=== PATIENT | male | born 1940 | race Caucasian/White ===

== ENCOUNTER 2016-11-24 08:39 | Day surgery (SDC) | payer OTHER ==
[~2016-11-24] VITALS: Ht 185.4 cm; Wt 112.0 kg
[2016-11-24] VITALS (16 sets, daily range): BP systolic 110–156; BP diastolic 52–99; PULSE 45–67; TEMP 36.9–37.2; O2SAT 94–100; Ht 185.4 cm; Wt 112.0 kg
[~2016-11-24 08:39] MED LIST: AMLO-110 PO; ASPI325T39 PO; ATEN-173 PO; ATOR10TA88 PO; FOLI800T PO; ISOS30TA3 PO; LISI5TAB3 PO; MULT-188 PO; MULTTAB5 PO; OMEG10007 PO; SYMIN160 INH; TAMS0.4C59 PO
[2016-11-24] MEDS ORDERED: MIDAZOLAM HCL 5 MG/ML 2ML VIAL IV ONE (08:40)
[2016-11-24] MEDS ORDERED: LEVALBUTEROL 1.25MG/3ML NEB INH ONE (08:40)
--- NOTE | 2016-11-24 09:30 | History & Physical Bridge Note ---
H&P Re-Evaluation Bridge Note: I have examined the patient, reviewed the History & Physical and in the interval since the performance of the History & Physical I have noted the following changes of clinical significance: No changes noted
--- NOTE | 2016-11-24 09:31 | Procedure Note ---
Pre-Mod Sedation Assessment General Date of Moderate Sedation: Nov 24, 2016. Pre-Sedation Airway Assessment Mallampati Classification: Class I ASA Classification: Class II Procedure Planning Contraindications-for Mod Sed: None Yes Notes The planned sedation has been discussed with the patient and consent obtained. I have identified the patient, determined the appropriateness of sedation and have assessed the patient immediately prior to the procedure. All medicine(s) and interventions are by my order.
[2016-11-24] MEDS ORDERED: MULT-663 ×2 (09:57)
[2016-11-24] MEDS ORDERED: NURSING VERBAL MED ORDER ONE (11:45)
[2016-11-24] MEDS ORDERED: MIDAZOLAM HCL 5 MG/ML 1 ML VIAL IV ONE (11:45)
--- NOTE | 2016-11-24 12:39 | Discharge Instructions ---
Discharge Instructions Date of Service Nov 24, 2016. Admission Reason for Admission: Rt Middle Lobe Pnx, Pulmonary Nodule Discharge Discharge Diagnosis / Problem: Rt middle lobe pneumonia. Pulmonary nodule. Discharge Goals Goal(s): Diagnostic testing Activity Recommendations Activity Limitations: resume your previous activity . Instructions / Follow-Up Instructions / Follow-Up ACTIVITY RECOMMENDATIONS: * Rest today, resume normal activity tomorrow. * Do not drive today. SPECIAL CARE INSTRUCTIONS: * Call your physician if you experience any chest or shoulder pain, fever, coughing, spitting up blood (more than 2 teaspoons) or excessive shortness of breath. * Remove dressing from IV site (where needle was placed into the vein) after 2 hours. Apply a warm, moist compress to site if irritation occurs. Call physician if site becomes red or painful to touch. * You may eat 4 hours after the completion of your procedure * Resume all usual medications as previously directed FOLLOW UP VISIT: * Keep any scheduled doctor appointments. Current Hospital Diet Patient's current hospital diet: Discharge Diet Recommended Diet: Regular Diet Pending Studies Studies pending at discharge: yes List of pending studies: Broncoscopy washings. Medical Emergencies . Who to Call and When: Medical Emergencies: If at any time you feel your situation is an emergency, please call 911 immediately. . Non-Emergent Contact Non-Emergency issues call your: Primary Care Provider . . "Provider Documentation" section prepared by Morales Puente PA-C. . VTE Core Measure Inpt VTE Proph given/why not?: Treatment not indicated (Same day procedure. )
--- NOTE | 2016-11-24 12:55 | DIAGNOSTIC IMAGING REPORT ---
INSPIRATORY/EXPIRATORY CHEST RADIOGRAPHS CLINICAL HISTORY: Post bronchoscopy and biopsy. FINDINGS: AP upright chest radiographs are performed in inspiration and expiration. Comparison is made to study dated 10/28/2016. Correlation is made with chest CT dated 10/17/2016. The examination is degraded by patient rotation and apical lordotic positioning. The heart is enlarged and there is atherosclerotic calcification of the thoracic aorta. The pulmonary vasculature is noncongested. There is volume loss in the right lung with a large right upper lobe opacity. The left lung is grossly clear. No large pleural effusion or pneumothorax is seen. The skeletal structures are osteopenic. The bony thorax is grossly intact. Degenerative change is noted in the thoracic spine. IMPRESSION: 1. No pneumothorax is identified post procedure. 2. Volume loss in the right lung with a right upper lobe density is similar to previous. Electronically signed by: Rick Wilder M.D. 11/24/2016 12:54 PM Dictated Date/Time: 11/24/2016 12:51 PM
--- NOTE | 2016-11-24 14:30 | OPERATIVE REPORT ---
DATE OF OPERATION: 11/24/2016 TIME: 10:30. PROCEDURE: Fiberoptic bronchoscopy with and without bronchoalveolar lavage. REASON FOR BRONCHOSCOPY: Persistent right upper lobe opacity in a chronic smoker. ANESTHESIA PREOPERATIVELY: None. ANESTHESIA DURING PROCEDURE: 6 mg IV Versed, 20 mL 2% Xylocaine spray above and below the cords, 4% viscous Xylocaine intranasally. PROCEDURE IN DETAIL: Fiberoptic bronchoscope was inserted into the left naris with minimal difficulty and passed to the level of the true vocal cords. The mucosa at the takeoff just superior to the vocal cord and laryngeal apparatus. Somewhat hypertrophied anteriorly but no discernible lesion was visible. The cords were anesthetized with 2% Xylocaine spray and the scope was then introduced into the trachea and right and left tracheobronchial tree. The bill was sharp. Left mainstem bronchus was found to be free of endobronchial lesions. Left upper lobe, the apical, posterior, anterior segments, lingular subdivision, left lower lobe were free of endobronchial lesions down to subsegmental bronchi. Right tracheobronchial tree was explored. The bill was sharp. The right mainstem bronchus was free of endobronchial lesions. Right middle lobe, the medial and lateral segments and all basilar segments of right lower lobe were found to be free of endobronchial lesions. Scope was then withdrawn to the right upper lobe. Mucosa appeared to be somewhat irregular with the posterior segment fish mouthed and partially obstructed. The mucosa overlying the apical segment and the anterior segments also looked hypertrophied and irregular. This area was copiously lavaged with Normosol and the aspirate sent for appropriate studies. Brushings were taken from all 3 segments and sent for cytologic preparation. Three brushings were taken. Minimal amount of bleeding was encountered which abated spontaneously. Iced saline lavage was then instilled into the right upper lobe bronchus and several endobronchial biopsies were taken from the posterior and the apical segments and the takeoff of the right upper lobe orifice. A moderate amount of bleeding was encountered which abated following instillation of iced saline lavage. The procedure was terminated. The patient was given a nebulizer treatment with Xopenex 1.25 mg and inspiratory and expiratory films were taken of the chest and the patient was then sent to the medical treatment unit hemodynamically stable with no signs of respiratory compromise. We will await microbiological, cytological and histopathologic diagnoses. I attest to the content of the Intraoperative Record and any orders documented therein. Any exception s are noted below.
[2016-11-27 13:41] LABS: HERPES SIMPLEX CULT SOURCE OTHER-R UPPER LOBE W; HERPES SIMPLEX VIRUS CULT NOT ISOLATED (NOT ISOLATED)
== END 2016-11-24 14:16 | disposition home or self-care (01) ==
LOC: C.ACU 08:39
PROVIDERS: ATTEND Internal Medicine Pulmonary Disease
DX: J18.1 Lobar pneumonia, unspecified organism (principal); R91.1 Solitary pulmonary nodule; J45.909 Unspecified asthma, uncomplicated; I25.10 Atherosclerotic heart disease of native coronary artery without angina pectoris; I10 Essential (primary) hypertension; E78.5 Hyperlipidemia, unspecified; R97.20 Elevated prostate specific antigen [PSA]; Z87.891 Personal history of nicotine dependence; Z79.82 Long term (current) use of aspirin; Z79.899 Other long term (current) drug therapy

== ENCOUNTER → 2017-01-05 | Outpatient (CLI) | payer OTHER ==
[~2017-01-05] MED LIST changes: +MULT-663
--- NOTE | 2017-01-05 12:37 | DIAGNOSTIC IMAGING REPORT ---
PET/CT SKULL-THIGH CLINICAL HISTORY: Solitary pulmonary nodule COMPARISON STUDY: Outside chest CT dated 10/17/2016 FINDINGS: The patient was injected with 12.7 mCi of F-18 labeled FDG. Following the standard induction phase, PET/CT scanning is performed from the skull base the upper thigh region. Activity within the neck is felt to be physiologic. Within the chest, there is persistent but improving right upper lobe atelectasis/consolidation. There is persistent cut off of the right mainstem bronchus. There are atelectatic/consolidated right upper lobe is moderately FDG avid with SUV maximum of 5.2. There is a moderately FDG avid lower right paratracheal lymph node with SUV maximum of 4.5. This contains areas of calcification. The node is minimally enlarged measuring 11 mm. There is a mildly enlarged 13 mm subcarinal lymph node which is mildly FDG avid with SUV maximum of 3.8. Within the abdomen and pelvis, there is no pathologic hepatic or splenic activity. There is physiologic urinary tract and bowel activity. There is no pathologic nimesh activity. There is no pathologic adrenal gland activity. The spleen is mildly enlarged measuring 12 cm. The prostate is enlarged measuring 6.5 cm. There is extensive colonic diverticulosis. IMPRESSION: 1. Persistent but improving right upper lobe atelectasis/consolidation, with persistent "cut off" of the right upper lobe bronchus. The atelectatic/consolidated lung is moderately FDG avid with SUV maximum of 5.2 2. Multiple mediastinal lymph nodes, many of which are partially calcified. Several are mildly enlarged including a 11 mm lower right paratracheal lymph node which is mildly FDG avid with SUV maximum of 4.5, as well as a 13 mm subcarinal lymph node with an SUV maximum of 3.8 Electronically signed by: Reymundo Weeks M.D. 01/05/2017 12:36 PM Dictated Date/Time: 01/05/2017 12:20 PM
== END | disposition home or self-care (01) ==
LOC: C.PET 09:10
PROVIDERS: ATTEND Physician Assistant
DX: R91.1 Solitary pulmonary nodule (principal)

== ENCOUNTER → 2017-04-20 | Day surgery (SDC) | payer OTHER ==
[2017-04-16 16:01] VITALS: BMI 32.0
[~2017-04-20] VITALS: Ht 188 cm; Wt 113.6 kg
[~2017-04-20] MED LIST changes: -AMLO-110 PO; +AMOX1TAB42 PO; +ATOR-54 PO; +ATOR10TA82 PO; -ATOR10TA88 PO; +ATRINS NEB; +ATROPINE SULFATE 0.1 MG/ML 5ML SYR IV PRN; +CHOL1000 PO; +DEXAMETHASONE SOD INJ 4 MG/ML VIAL ONE; +EpHEDrine SULFATE 50MG/5ML SYR ONE; +EpHEDrine SULFATE INJ 50 MG/ML AMP IV PRN; +EpHEDrine SULFATE INJ 50 MG/ML AMP ONE; +FENTANYL CITRATE INJ 50 MCG/1 ML 2 ML VIAL IV PRN; +FENTANYL CITRATE INJ 50 MCG/1 ML 2 ML VIAL ONE; +FLUMAZENIL 0.1 MG/1 ML 10 ML VIAL IV PRN; +LABETALOL HCL IV 5 MG/ML 20ML IV PRN; +LARYING-O-JET KIT (LTA) ONE; +LIDOCAINE HCL 2% 2 ML VIAL (20MG/ML) ONE; +LISI-729 PO; -LISI5TAB3 PO; +METH500T3 PO; +MIDAZOLAM HCL 1 MG/ML 2ML VIAL ONE; -MULT-663; +NALOXONE HCL 0.4 MG/1 ML VIAL/CARP IV PRN; +ONDANSETRON INJ 2 MG/ML 2 ML VIAL IV PRN; +ONDANSETRON INJ 2 MG/ML 2 ML VIAL ONE; +PHENYLEPHRINE HCL INJ 10 MG/ML VIAL ONE; +PROMETHAZINE HCL INJ 12.5 MG in SODIUM CHLORIDE 0.9% 50ML 50 ML IV PRN; +PROPOFOL IV EMULSION 10 MG/ML 20 ML VIAL IV ONE; +ROCURONIUM BROMIDE 10 MG/ML 5 ML VIAL IV ONE; +SODIUM CHLORIDE 0.9% 1000ML 1,000 ML IV SCH; +TAMS0.4C38 PO; -TAMS0.4C59 PO; +TIOT1SPR INH; +VNTHFA/IN INH
[2017-04-20 08:51] VITALS: BP 143/71; PULSE 75; TEMP 36.6; O2SAT 91; Ht 188 cm; Wt 113.6 kg
--- NOTE | 2017-04-20 10:23 | History and Physical ---
History & Physical Date of Service Apr 20, 2017. History & Physical Patient is here today for a follow-up. Since he was last here he did have a PET scan done. PET scan was reviewed with him as well as he of recent CT scan. Patient has had a known right upper lobe nodular area for several years. However earlier this year there was a change so we ended up doing bronchoscopic evaluation. The bronchoscopy did review all the regular appears the tissue, but the brushings and washings were unremarkable. Because of this a PET scan was done. CT scan is showing some FDG avidity with a maximum SUV of 5.2. It was recommended the patient have a subsequent CT scan following this. CT scan was done recently and showed a decrease in size of this atelectatic/nodular area compared to previous studies. There is a bronchial but does have a cut off with question of obstruction. And this was reviewed with the patient as well. One discussed with the patient patient reports that he is not having any breathing difficulties. No cough. No wheeze. No chest congestion or tightness. He overall is feeling well. He is not having any increased shortness of breath at rest or with exertion. He is not having any difficulty with cough or congestion. No significant mucus production. He has not had any anginal symptoms. No chest pain. No palpitations. No fever chills. No night sweats. His weight is been stable. There has been no weight change. He has not had any difficulty with GI symptoms. No nausea or vomiting. No indigestion or heartburn. No difficulty with his bowels. No difficulty voiding. No swelling in his extremities. He is taking his medications as directed. He has not had any side effect to his Medicaid. Active Problems 1. Arteriosclerotic cardiovascular disease 2. Asthma 3. Asthmatic bronchitis 4. Chemotherapeutics 5. Colon cancer 6. Cough 7. Elevated prostate specific antigen (PSA) 8. Hyperlipidemia 9. Hypertension 10. Nephrolithiasis 11. Oral thrush 12. Pulmonary atelectasis 13. Right middle lobe pneumonia 14. Shortness of breath 15. Solitary pulmonary nodule 16. History of asbestos exposure Surgical History 1. History of Card Cath Post-Proc Data: ___ Lesions Successfully Dilated 2. History of Cath Stent Placement 3. Chemotherapeutics 4. History of Cholecystectomy Laparoscopic 5. History of Colon Surgery 6. History of Hernia Repair 7. History of Pulmonary Function Tests Family History 1. Family history of malignant neoplasm of prostate (Z80.42) 2. Family history of Acute Myocardial Infarction 3. Family history of Heart Disease 4. Family history of Hypertension 5. Family history of Prostate Cancer Social History Being A Social Drinker Former smoker (Z87.891) Marital History - Currently Retired From Work Current Meds 1. Symbicort 160-4.5 MCG/ACT Inhalation Aerosol; INHALE 1 PUFF TWICE DAILY. RINSE 2. Ipratropium-Albuterol 0.5-2.5 (3) MG/3ML Inhalation Solution; inhale contents of 1 vial 3. Spiriva Respimat 2.5 MCG/ACT Inhalation Aerosol Solution; INHALE 2 PUFFS ONCE 4. Ventolin HFA 108 (90 Base) MCG/ACT Inhalation Aerosol Solution; INHALE 2 PUFFS 5. Aspirin 325 MG Oral Tablet; TAKE 1 TABLET DAILY; 6. Atenolol 25 MG Oral Tablet; TAKE 1 TABLET DAILY; 7. Atorvastatin Calcium 20 MG Oral Tablet; TAKE 1 TABLET DAILY DIRECTED; 8. Centrum Silver Oral Tablet; TAKE 1 TABLET DAILY; 9. Citrucel TABS; Take 1 tablet daily; 10. Fish Oil 1000 MG Oral Capsule; TAKE 1 CAPSULE DAILY; 11. Flomax 0.4 MG Oral Capsule; TAKE 1 CAPSULE Daily; 12. Folic Acid 800 MCG Oral Tablet; Take 1 tab Sun, Tues, Thur, Sat; 13. Imdur 30 MG TB24; TAKE 1 /2 TABLET DAILY; 14. Lisinopril 5 MG Oral Tablet; TAKE 1 TABLET DAILY 15. Ocuvite TABS Allergies 1. No Known Drug Allergies Vitals Blood Pressure: 130 / 82, LUE, Sitting Height: 6 ft 2 in Weight: 257 lb 2 oz BMI Calculated: 33.01 BSA Calculated: 2.42 O2 Saturation: 98, RA Temperature: 98 F Heart Rate: 57 Respiration: 20 Physical Exam Constitutional General appearance: No acute distress, well appearing and well nourished. Eyes Conjunctiva and lids: No swelling, erythema, or discharge. Pupils and irises: Equal, round and reactive to light. Ears, Nose, Mouth, and Throat External inspection of ears and nose: Normal. Oropharynx: Normal with no erythema, edema, exudate or lesions. Pulmonary Respiratory effort: No increased work of breathing or signs of respiratory distress. Auscultation of lungs: Abnormal. ~Patient has diminished breath sounds bilaterally. He has some coarse wheezes in the left base. Cardiovascular Palpation of heart: Normal PMI, no thrills. Auscultation of heart: Normal rate and rhythm, normal S1 and S2, without murmurs. Examination of extremities for edema and/or varicosities: Normal. Abdomen Abdomen: Non-tender, no masses. Liver and spleen: No hepatomegaly or splenomegaly. Lymphatic Palpation of lymph nodes in neck: No lymphadenopathy. Neurologic Cranial nerves: Cranial nerves 2-12 intact. Reflexes: 2+ and symmetric. Sensation: No sensory loss. Psychiatric Orientation to person, place and time: Normal. Mood and affect: Normal.
--- NOTE | 2017-04-20 12:12 | Bronchoscopy Procedure Note ---
Bronchoscopy Procedure Note Procedure: Flexible-Bronchoscopy, EBUS, FNA, Tbbx, BAL Consent: Obtained through the patient placed into the chart Pre-Procedural Dx: Right upper lobe mass with mediastinal adenopathy Post-Procedural Dx: Right upper lobe mass with mediastinal adenopathy Analgesia: GETA Sedation: GETA Procedure: The Olympus video bronchoscope and EBUS scope were used for this procedure Initially the flexible bronchoscope was used for evaluation of the airways. The ET tube was notably 6 cm above the level of the bill. Trachea: Visualized portion of the trachea was anatomically within normal limits Bill: Anatomically within normal limits Right bronchial tree: Right mainstem bronchus: Anatomically within normal limits Right upper lobe: RB3 bronchial malacia with complete collapse/adherence of the airway Bronchus intermedius: Anatomically within normal limits Right middle lobe: Anatomically within normal limits Right lower lobe: Anatomically within normal limits Findings: No significant findings noted Left bronchial tree: Left mainstem bronchus: Anatomically within normal limits Left upper lobe: Anatomically within normal limits Lingula: Anatomically within normal limits Left lower lobe: Anatomically within normal limits Findings: No significant findings noted EBUS/JET: FNA [place] Stations: 7: # of passes 4 10R: # of passes 4 4R: # of passes 6 Procedure: I did use the intrabronchial forcep/transbronchial forcep biopsies to slowly open a small hole into the anterior subsegment of the right upper lobe allowing me to pass the forceps into that subsegment and take small transbronchial biopsies Tbbx: Right upper lobe BAL: Right upper lobe EBL: 5 cc Complications: None Follow-up: PACU
--- NOTE | 2017-04-20 12:47 | Anesthesiology Progress Note ---
Anesthesia Post Op Note Date & Time Apr 20, 2017 at 12:47 Vital Signs Pain Intensity: 0 Vital Signs Past 12 Hours Date Time Temp Pulse Resp B/P (MAP) Pulse Ox O2 Delivery O2 Flow Rate FiO2 04/20/17 12:35 79 17 140/74 100 Oxymask 10 04/20/17 12:25 96 15 133/75 100 Oxymask 10 04/20/17 12:17 36.1 79 16 139/74 97 Oxymask 04/20/17 08:51 36.6 75 20 143/71 (95) 91 Room Air Notes Mental Status: alert / awake / arousable, participated in evaluation Pt Amnestic to Procedure: Yes Nausea / Vomiting: adequately controlled Pain: adequately controlled Airway Patency, RR, SpO2: stable & adequate BP & HR: stable & adequate Hydration State: stable & adequate Anesthetic Complications: no major complications apparent
--- NOTE | 2017-04-20 13:11 | DIAGNOSTIC IMAGING REPORT ---
CHEST ONE VIEW PORTABLE CLINICAL HISTORY: Post endobronchial biopsy COMPARISON STUDY: 11/24/2016 FINDINGS: Cardiac and mediastinal contours remain stable. There is elevation of the right hemidiaphragm. There is a chronic right perihilar and upper lobe opacity measuring 6 cm. There is no pneumothorax status post bronchoscopy.[ IMPRESSION: No evidence of pneumothorax status post bronchoscopy. Electronically signed by: Reymundo Weeks M.D. 04/20/2017 1:09 PM Dictated Date/Time: 04/20/2017 1:08 PM
[2017-04-20 13:15] VITALS: BP 130/83; PULSE 77; TEMP 36.6; O2SAT 92
[2017-04-20 13:45] VITALS: BP 121/70; PULSE 66; O2SAT 99
--- NOTE | 2017-04-20 14:05 | Discharge Instructions ---
Discharge Instructions Date of Service Apr 20, 2017. Admission Reason for Admission: Pulmonary Nodule Discharge Discharge Diagnosis / Problem: right upper lobe mass with mediastinal lymphadenopathy Discharge Goals Goal(s): Diagnostic testing Activity Recommendations Activity Limitations: resume your previous activity . Instructions / Follow-Up Instructions / Follow-Up Follow-up in the [facility] pulmonary division Current Hospital Diet Patient's current hospital diet: Regular Diet Discharge Diet Recommended Diet: Regular Diet Procedures Procedures Performed: Flexible Bronchosbopy and Endobronchial Ultrasound Guided Transbronchial Biopsy Pending Studies Studies pending at discharge: no Medical Emergencies . Who to Call and When: Medical Emergencies: If at any time you feel your situation is an emergency, please call 911 immediately. . Non-Emergent Contact Non-Emergency issues call your: Fisher Clam . . "Provider Documentation" section prepared by Estuardo Mckeon. . VTE Core Measure Inpt VTE Proph given/why not?: Treatment not indicated
[2017-04-20 14:15] VITALS: BP 123/66; PULSE 65; TEMP 36.7; O2SAT 93
== END | disposition home or self-care (01) ==
LOC: C.ACU 07:58
PROVIDERS: ATTEND Internal Medicine Critical Care Medicine
DX: R91.8 Other nonspecific abnormal finding of lung field (principal); R59.0 Localized enlarged lymph nodes; J45.909 Unspecified asthma, uncomplicated; J44.9 Chronic obstructive pulmonary disease, unspecified; I12.9 Hypertensive chronic kidney disease with stage 1 through stage 4 chronic kidney disease, or unspecified chronic kidney disease; I25.10 Atherosclerotic heart disease of native coronary artery without angina pectoris; N18.9 Chronic kidney disease, unspecified; E78.5 Hyperlipidemia, unspecified; Z98.890 Other specified postprocedural states; Z90.49 Acquired absence of other specified parts of digestive tract; Z90.89 Acquired absence of other organs; E66.9 Obesity, unspecified; Z68.32 Body mass index [BMI] 32.0-32.9, adult; Z87.891 Personal history of nicotine dependence; Z79.899 Other long term (current) drug therapy; Z79.82 Long term (current) use of aspirin; Z80.42 Family history of malignant neoplasm of prostate; Z82.49 Family history of ischemic heart disease and other diseases of the circulatory system

== ENCOUNTER → 2017-05-20 | Day surgery (SDC) | payer OTHER ==
[2017-05-07 08:13] VITALS: Ht 188 cm; Wt 113.6 kg
[~2017-05-20] VITALS: Ht 188 cm; Wt 113.6 kg
[~2017-05-20] MED LIST changes: +500ML BSS 0.3ML EPI 1:1000PF IRRIG ONE; +ACETAMINOPHEN 325 MG TAB PO PRN; +AMVISC PLUS 0.8ML SYRINGE INT OCU ONE; -ATOR10TA82 PO; +AcetaZOLAMIDE 250 MG TAB PO SCH; +BETAXOLOL HCL 0.25% OP SUSP PER DROP CHARGE OPL SCH; +BRIMONIDINE TART 0.2% OP SOLN PER DROP CHARGE ONE; +BSS FLUSH ONE; -DEXAMETHASONE SOD INJ 4 MG/ML VIAL ONE; +ENDOCOAT 0.85ML SYRINGE INT OCU ONE; -EpHEDrine SULFATE 50MG/5ML SYR ONE; -EpHEDrine SULFATE INJ 50 MG/ML AMP ONE; +EpINEphrine INJ 1MG/ML AMP 1 MG/ML AMP ONE; -FENTANYL CITRATE INJ 50 MCG/1 ML 2 ML VIAL IV PRN; -FENTANYL CITRATE INJ 50 MCG/1 ML 2 ML VIAL ONE; -FLUMAZENIL 0.1 MG/1 ML 10 ML VIAL IV PRN; -LABETALOL HCL IV 5 MG/ML 20ML IV PRN; +LACTATED RINGER'S 1000ML 500 ML IV SCH; -LARYING-O-JET KIT (LTA) ONE; +LIDOCAINE 4% OP SOLN DROP CHARGE ONE; +LIDOCAINE 4% OP SOLN DROP CHARGE OPL SCH; +LIDOCAINE HCL 1% MPF 2 ML VIAL ONE; -LIDOCAINE HCL 2% 2 ML VIAL (20MG/ML) ONE; -LISI-729 PO; +MIX: 4ML BSS 1ML EPI 1:1000 PF INSTIL ONE; +MOXIFLOXACIN OPH SOLN PER DROP CHARGE ONE; -NALOXONE HCL 0.4 MG/1 ML VIAL/CARP IV PRN; +OCUCOAT 1 ML SOLN IO ONE; -ONDANSETRON INJ 2 MG/ML 2 ML VIAL IV PRN; -ONDANSETRON INJ 2 MG/ML 2 ML VIAL ONE; -PHENYLEPHRINE HCL INJ 10 MG/ML VIAL ONE; +POVIDONE-IODINE OP SOLN 30 ML BTL ONE; -PROMETHAZINE HCL INJ 12.5 MG in SODIUM CHLORIDE 0.9% 50ML 50 ML IV PRN; +PROPARACAINE 0.5% OP SOLN PER DROP CHARGE OPL SCH; -PROPOFOL IV EMULSION 10 MG/ML 20 ML VIAL IV ONE; -ROCURONIUM BROMIDE 10 MG/ML 5 ML VIAL IV ONE; -SODIUM CHLORIDE 0.9% 1000ML 1,000 ML IV SCH; +TOBRAMYCIN/DEXAMETHASONE OPH OINT PER APPLN CHARGE ONE
[2017-05-20] MEDS: PHENYLEPHRINE HCL 2.5% OP SOLN PER DROP CHARGE OPL SCH ×2 (11:41→11:46)
[2017-05-20] MEDS: TROPICAMIDE 1% OP SOLN PER DROP CHARGE OPL SCH ×2 (11:42→11:47)
[2017-05-20] MEDS: CYCLOPENTOLATE HCL 1% OP SOLN PER DROP CHARGE OPL SCH ×2 (11:43→11:48)
[2017-05-20] MEDS: MOXIFLOXACIN OPH SOLN PER DROP CHARGE OPL SCH ×2 (11:44→11:54)
--- NOTE | 2017-05-20 12:40 | Discharge Instructions-SurgCtr ---
Discharge Instructions Date of Service May 20, 2017. Visit Reason for Visit: Left Cataract Discharge Discharge Diagnosis / Problem: lens implant left eye Discharge Goals Goal(s): Improve function Activity Recommendations Activity Limitations: resume your previous activity Lifting Limitations: no more than 10 pounds Exercise/Sports Limitations: gradually increase as tolerated May Resume Sexual Activity: when tolerated Shower/Bathe: tomorrow Driving or Machine Use: resume 1 day after discharge Anesthesia . Post Anesthesia Instructions: If you have had General Anesthesia or IV Sedation: * Do not drive today. * Resume driving when surgeon permits. * Do not make important decisions or sign legal documents today. * Call surgeon for: 1. Temperature elevations greater than 101 degrees F. 2. Uncontrollable pain. 3. Excessive bleeding. 4. Persistent nausea and vomiting. 5. Medication intolerance (nausea, vomiting or rash). * For nausea and vomiting use only clear liquids such as: tea, soda, bouillon until nausea subsides, then gradually increase diet as tolerated. * If you have any concerns or questions, call your surgeon's office. If physician is unavailable and it is an emergency, call 911 or go to the nearest emergency room. . Instructions / Follow-Up Instructions / Follow-Up ACTIVITY RECOMMENDATIONS: * Light activities. * Mild irritation and blurred vision are common for the first few days. * You may walk outside, read, watch television. * Redness around the white part of the eye is common. MEDICATIONS: Resume previous medications unless instructed otherwise by your surgeon. * Take white Diamox (Acetazolamide) tablet at 3 pm today. Start all eye drops at 3 pm today: * Eye drops (today and tomorrow): Prednisone - one drop in operative eye every 3 hours while awake Ofloxacin - one drop in operative eye every 3 hours while awake SPECIAL CARE INSTRUCTIONS: * Tape plastic shield over eye to sleep at night. Call your doctor at with any concerns or problems. FOLLOW UP VISIT: Follow-up with Dr Larry at [place] office as scheduled. Diet Recommendations Home Diet: no limitations Procedures Procedures Performed: cataract extraction with lens implant Pending Studies Studies pending at discharge: no Medical Emergencies . Who to Call and When: Medical Emergencies: If at any time you feel your situation is an emergency, please call 911 immediately. . Non-Emergent Contact Non-Emergency issues call your: [employer] Developer Call Non-Emergent contact if: your pain is not controlled [phone] . . "Provider Documentation" section prepared by Christopher Larry. .
--- NOTE | 2017-05-20 12:41 | [facility] Operative Report ---
Operative Report Date of Service May 20, 2017. Operative Report 1. PREOPERATIVE DIAGNOSIS: Senile nuclear cataract, left eye. 2. POSTOPERATIVE DIAGNOSIS: Senile nuclear cataract, left eye. 3. PROCEDURE: Phacoemulsification of left cataract with posterior chamber lens implant, type [employer], model MX60, power +18.0 diopters. ANESTHESIA: Local standby. SURGEON: Dr. Larry. COMPLICATIONS: None. OPERATING TIME: 10 minutes. 4. OPERATION AND FINDINGS: DESCRIPTION OF PROCEDURE: The left pupil was dilated. The anesthetic was administered using a topical technique. The left eye was prepped and draped. A speculum was placed. A clear corneal incision was formed. The chamber was filled with Amvisc Plus and Endocoat. Epinephrine solution was used. A paracentesis was placed. A capsulorrhexis was performed. The nucleus was hydrodissected. The lens was removed with phacoemulsification. Time was 3.04 seconds. The aspiration unit was used to remove the cortex. The capsule was filled with Amvisc Plus. The lens implant was folded and placed into the capsule. The incision was hydrated. The Amvisc was aspirated. The wound was secure. The chamber was deep. The pupil was round. Brimonidine, TobraDex ointment and Vigamox solution were placed. The speculum was removed. The patient was returned to the Recovery Room in stable condition. I attest to the content of the Intraoperative Record and any orders documented therein. Any exceptions are noted below. The scribe's documentation has been prepared in my presence, under my direction and personally reviewed by me in its entirety. I confirm that the note above accurately reflects all work, treatment, procedures, and medical decision making performed by me. I personally scribed for Christopher Larry M.D. ([email or web address]) on 05/20/17 at 12:41. Electronically submitted by Margret Bustos ([email or web address]).
[2017-05-20 12:44] VITALS: TEMP 36.9
--- NOTE | 2017-05-20 12:46 | Anesthesia Progress Nt - [facility] ---
Anesthesia Post Op Note Date & Time May 20, 2017 at 12:46 Vital Signs Pain Intensity: 0 Vital Signs Past 12 Hours Date Time Temp Pulse Resp B/P (MAP) Pulse Ox O2 Delivery O2 Flow Rate FiO2 05/20/17 11:31 36.7 57 18 127/60 (82) 99 Room Air Notes Mental Status: alert / awake / arousable, participated in evaluation Pt Amnestic to Procedure: Yes Nausea / Vomiting: adequately controlled Pain: adequately controlled Airway Patency, RR, SpO2: stable & adequate BP & HR: stable & adequate Hydration State: stable & adequate Anesthetic Complications: no major complications apparent
[2017-05-20 13:03] VITALS: BP 145/84; PULSE 49; O2SAT 100
== END | disposition home or self-care (01) ==
LOC: X.SURG 10:58
PROVIDERS: ATTEND Specialist
DX: H25.12 Age-related nuclear cataract, left eye (principal); I25.10 Atherosclerotic heart disease of native coronary artery without angina pectoris; N18.9 Chronic kidney disease, unspecified; E66.9 Obesity, unspecified; Z68.32 Body mass index [BMI] 32.0-32.9, adult; Z98.890 Other specified postprocedural states; Z90.49 Acquired absence of other specified parts of digestive tract; Z85.038 Personal history of other malignant neoplasm of large intestine

== ENCOUNTER → 2017-06-10 | Day surgery (SDC) | payer OTHER ==
[2017-06-04 12:28] VITALS: Ht 188 cm; Wt 113.6 kg
[~2017-06-10] VITALS: Ht 188 cm; Wt 113.6 kg
[~2017-06-10] MED LIST changes: -AMOX1TAB42 PO; -BETAXOLOL HCL 0.25% OP SUSP PER DROP CHARGE OPL SCH; +BETAXOLOL HCL 0.25% OP SUSP PER DROP CHARGE OPR SCH; -LIDOCAINE 4% OP SOLN DROP CHARGE OPL SCH; +LIDOCAINE 4% OP SOLN DROP CHARGE OPR SCH; +MULT-1093 PO; -MULT-188 PO; +MULT60CA PO; -MULTTAB5 PO; -PROPARACAINE 0.5% OP SOLN PER DROP CHARGE OPL SCH; +PROPARACAINE 0.5% OP SOLN PER DROP CHARGE OPR SCH
[2017-06-10] MEDS: PHENYLEPHRINE HCL 2.5% OP SOLN PER DROP CHARGE OPR SCH ×2 (09:05→09:10)
[2017-06-10] MEDS: TROPICAMIDE 1% OP SOLN PER DROP CHARGE OPR SCH ×2 (09:06→09:11)
[2017-06-10] MEDS: CYCLOPENTOLATE HCL 1% OP SOLN PER DROP CHARGE OPR SCH ×2 (09:07→09:12)
[2017-06-10] MEDS: MOXIFLOXACIN OPH SOLN PER DROP CHARGE OPR SCH ×2 (09:08→09:18)
--- NOTE | 2017-06-10 10:04 | Discharge Instructions-SurgCtr ---
Discharge Instructions Date of Service Jun 10, 2017. Visit Reason for Visit: Cataract Right Eye Discharge Discharge Diagnosis / Problem: lens implant right eye Discharge Goals Goal(s): Improve function Activity Recommendations Activity Limitations: resume your previous activity Lifting Limitations: no more than 10 pounds Exercise/Sports Limitations: gradually increase as tolerated May Resume Sexual Activity: when tolerated Shower/Bathe: tomorrow Driving or Machine Use: resume 1 day after discharge Anesthesia . Post Anesthesia Instructions: If you have had General Anesthesia or IV Sedation: * Do not drive today. * Resume driving when surgeon permits. * Do not make important decisions or sign legal documents today. * Call surgeon for: 1. Temperature elevations greater than 101 degrees F. 2. Uncontrollable pain. 3. Excessive bleeding. 4. Persistent nausea and vomiting. 5. Medication intolerance (nausea, vomiting or rash). * For nausea and vomiting use only clear liquids such as: tea, soda, bouillon until nausea subsides, then gradually increase diet as tolerated. * If you have any concerns or questions, call your surgeon's office. If physician is unavailable and it is an emergency, call 911 or go to the nearest emergency room. . Instructions / Follow-Up Instructions / Follow-Up ACTIVITY RECOMMENDATIONS: * Light activities. * Mild irritation and blurred vision are common for the first few days. * You may walk outside, read, watch television. * Redness around the white part of the eye is common. MEDICATIONS: Resume previous medications unless instructed otherwise by your surgeon. * Take white Diamox (Acetazolamide) tablet at 1 pm today. Start all eye drops at 1 pm today: * Eye drops (today and tomorrow): Prednisone - one drop in operative eye every 3 hours while awake Ofloxacin - one drop in operative eye every 3 hours while awake SPECIAL CARE INSTRUCTIONS: * Tape plastic shield over eye to sleep at night. Call your doctor at with any concerns or problems. FOLLOW UP VISIT: Follow-up with Dr Larry at [facility] as scheduled. Diet Recommendations Home Diet: no limitations Procedures Procedures Performed: cataract extraction with lens implant Pending Studies Studies pending at discharge: no Medical Emergencies . Who to Call and When: Medical Emergencies: If at any time you feel your situation is an emergency, please call 911 immediately. . Non-Emergent Contact Non-Emergency issues call your: Staff Nurse [facility] Team Call Non-Emergent contact if: your pain is not controlled [phone] . . "Provider Documentation" section prepared by Christopher Larry. .
--- NOTE | 2017-06-10 10:08 | [facility] Operative Report ---
Operative Report Date of Service Jun 10, 2017. Operative Report 1. PREOPERATIVE DIAGNOSIS: Senile nuclear cataract, right eye. 2. POSTOPERATIVE DIAGNOSIS: Senile nuclear cataract, right eye. 3. PROCEDURE: Phacoemulsification of right cataract with posterior chamber lens implant, type [employer], model MX60, power +17.5 diopters. ANESTHESIA: Local standby. SURGEON: Dr. Larry. COMPLICATIONS: None. OPERATING TIME: 10 minutes. 4. OPERATION AND FINDINGS: DESCRIPTION OF PROCEDURE: The right pupil was dilated. The anesthetic was administered using a topical technique. The right eye was prepped and draped. A speculum was placed. A clear corneal incision was formed. The chamber was filled with Amvisc Plus and Endocoat. Epinephrine solution was used. A paracentesis was placed. A capsulorrhexis was performed. The nucleus was hydrodissected. The lens was removed with phacoemulsification. Time was 3.53 seconds. The aspiration unit was used to remove the cortex. The capsule was filled with Amvisc Plus. The lens implant was folded and placed into the capsule. A second astigmatic incision was placed at the limbus directly across from the original. The incisions were hydrated. The Amvisc was aspirated. The wounds were secure. The chamber was deep. The pupil was round. Brimonidine, TobraDex ointment and Vigamox solution were placed. The speculum was removed. The patient was returned to the Recovery Room in stable condition. I attest to the content of the Intraoperative Record and any orders documented therein. Any exceptions are noted below. The scribe's documentation has been prepared in my presence, under my direction and personally reviewed by me in its entirety. I confirm that the note above accurately reflects all work, treatment, procedures, and medical decision making performed by me. I personally scribed for Christopher Larry M.D. ([email or web address]) on 06/10/17 at 10:08. Electronically submitted by Margret [email or web address]).
[2017-06-10 10:28] VITALS: BP 150/78; PULSE 58; O2SAT 100
--- NOTE | 2017-06-10 10:41 | Anesthesiology Progress Note ---
Anesthesia Post Op Note Date & Time Jun 10, 2017 at 10:41 Vital Signs Pain Intensity: 0 Vital Signs Past 12 Hours Date Time Temp Pulse Resp B/P (MAP) Pulse Ox O2 Delivery O2 Flow Rate FiO2 06/10/17 10:28 58 18 150/78 (102) 100 Room Air 06/10/17 10:09 36.8 58 18 157/83 (107) 97 Room Air 06/10/17 08:57 36.8 58 20 156/90 (112) 100 Room Air Notes Mental Status: alert / awake / arousable, participated in evaluation Pt Amnestic to Procedure: Yes Nausea / Vomiting: adequately controlled Pain: adequately controlled Airway Patency, RR, SpO2: stable & adequate BP & HR: stable & adequate Hydration State: stable & adequate Anesthetic Complications: no major complications apparent
== END | disposition home or self-care (01) ==
LOC: X.SURG 08:23
PROVIDERS: ATTEND Specialist
DX: H25.11 Age-related nuclear cataract, right eye (principal); I25.10 Atherosclerotic heart disease of native coronary artery without angina pectoris; I10 Essential (primary) hypertension; E78.00 Pure hypercholesterolemia, unspecified; K21.9 Gastro-esophageal reflux disease without esophagitis; E66.9 Obesity, unspecified; J44.9 Chronic obstructive pulmonary disease, unspecified; Z87.442 Personal history of urinary calculi; Z85.038 Personal history of other malignant neoplasm of large intestine; E78.5 Hyperlipidemia, unspecified; N40.0 Benign prostatic hyperplasia without lower urinary tract symptoms; Z87.891 Personal history of nicotine dependence